=== PATIENT | male | born 1985 | race African-American/Black ===

== ENCOUNTER 2019-05-20 18:05 | Inpatient (IN) | payer OTHER ==
[2019-05-20 19:29] VITALS: BMI 27.3
--- NOTE | 2019-05-20 20:26 | HP ---
"CIWA Score Nausea/Vomitin-No Nausea/No Vomiting Muscle Tremors: 3 Anxiety: 6 Agitation: 4-Moderately Restless Paroxysmal Sweats: No Perspiration Orientation: 1-Uncertain about Date Tacttile Disturbances: 0-None Auditory Disturbances: 0-None Visual Disturbances: 0-None Headache: 0-None Present CIWA-Ar Total Score: 14 - Admission Criteria OASAS Guidelines: Admission for Medically Managed Detox: Requires at least one of the followin. CIWA greater than 12 2. Seizures within the past 24 hours 3. Delirium tremens within the past 24 hours 4. Hallucinations within the past 24 hours 5. Acute intervention needed for co occurring medical disorder 6. Acute intervention needed for co occurring psychiatric disorder 7. Severe withdrawal that cannot be handled at a lower level of care (continued vomiting, continued diarrhea, abnormal vital signs) requiring intravenous medication and/or fluids 8. Patient presents the following: CIWA greater than 12 Admission Criteria Met: Admission criteria met Admission ROS [facility] Chief Complaint: States I have to get detoxed before I can go to rehab. Allergies/Adverse Reactions: Allergies Allergy/AdvReac Type Severity Reaction Status Date / Time No Known Allergies Allergy Verified 05/20/19 19:12 History of Present Illness: 34 yo presents w/ alcohol withdrawal seeking detox. [facility] UTox: Neg KEKE: 0.004 Denies seizures, blackouts, or overdoses. Alcohol use began at age 10/11. Drinks 1-2 bottle liquor daily. Nicotine use began at age 18. Currently smokes 1 cig /day BASED ON ASSESSMENT PATIENT NEEDS MORE THAN 2 NIGHTS OF TREATMENT PMHx: Denies MHHx: States was told was bipolar but denies any MH problems. Denies thoughts of harming self or others. Does not see a MH Provider. SHx: Domiciled - lives w/ brother. Unemployed. Denies legal issues. Search Terms: Johnny Worthy, 1985 Search Date: 05/20/2019 08:25:42 PM The Drug Utilization Report below displays all of the controlled substance prescriptions, if any, that your patient has filled in the last twelve months. The information displayed on this report is compiled from pharmacy submissions to the Department, and accurately reflects the information as submitted by the pharmacies. This report was requested by: Vanessa Caicedo | Reference #: [id number] There are no results for the search terms that you entered. Exam Limitations: No Limitations - Ebola screening Have you traveled outside of the country in the last 21 days: No Have you had contact with anyone from an Ebola affected area: No Have you been sick,other than usual withdrawal symptoms: No Do you have a fever: No - Review of Systems EENT: reports: No Symptoms Reported Respiratory: reports: No Symptoms reported Cardiac: reports: No Symptoms Reported GI: reports: No Symptoms Reported : reports: No Symptoms Reported Musculoskeletal: reports: No Symptoms Reported Integumentary: reports: No Symptoms Reported Neuro: reports: No Symptoms reported Endocrine: reports: Increased Thirst Hematology: reports: No Symptoms Reported Psychiatric: reports: Agitated, Anxious Patient History - PPD History Previous Implant?: Yes Documented Results: Negative w/o proof Implanted On Prior [facility] Admission?: No PPD to be Administered?: Yes - Smoking Cessation Smoking history: Current every day smoker Have you smoked in the past 12 months: Yes Aproximately how many cigarettes per day: 1 Hx Chewing Tobacco Use: No Initiated information on smoking cessation: Yes 'Breaking Loose' booklet given: 05/20/19 - Substance & Tx. History Hx Alcohol Use: Yes Hx Substance Use: No Substance Use Type: Alcohol Hx Substance Use Treatment: Yes (detox, rehab) - Substances abused Cocaine Substance route: Inhalation Frequency: Daily Amount used: 20 bags Age of first use: 15 Date of last use: 05/19/19 Alcohol Substance route: Oral Frequency: Daily Amount used: 24 ounces of beer and liquor. Age of first use: 32 Date of last use: 05/19/19 Admission Physical Exam [facility] - Vital Signs Vital Signs: Vital Signs - 24 hr 05/20/19 05/20/19 19:11 19:31 Temperature 97.1 F L 97.1 F L Pulse Rate 84 84 Respiratory 16 16 Rate Blood Pressure 140/90 140/90 - Physical General Appearance: Yes: Nourished, Mild Distress, Tremorous, Irritable, Anxious HEENTM: Yes: Hearing grossly Normal, Normocephalic, Normal Voice, NISA, Pharynx Normal Respiratory: Yes: Lungs Clear, Normal Breath Sounds, No Respiratory Distress Neck: Yes: No masses,lesions,Nodules, Supple Breast: Yes: Breast Exam Deferred Cardiology: Yes: Regular Rhythm, Regular Rate, S1, S2 Abdominal: Yes: Non Tender, Flat, Soft, Increased Bowel Sounds Genitourinary: Yes: Within Normal Limits Back: Yes: Normal Inspection Musculoskeletal: Yes: full range of Motion, Gait Steady Extremities: Yes: Normal Capillary Refill, Tremors (Mild tremors seen) Neurological: Yes: Alert, Motor Strength 5/5, Depressed Affect (Flat affect, very angry about answering questions, restless) Integumentary: Yes: Normal Color, Dry (decreased skin turgor), Warm Lymphatic: Yes: Within Normal Limits - Diagnostic (1) Alcohol dependence with withdrawal, uncomplicated Current Visit: Yes Status: Acute (2) Nicotine abuse Current Visit: Yes Status: Chronic (3) Mood and affect disturbance Current Visit: Yes Status: Chronic Comment: Unsure of chronicity (4) Symptoms of dehydration Current Visit: Yes Status: Acute Cleared for Admission S - Detox or Rehab [facility] Level of Care: Medically Managed Detox Regimen/Protocol: Librium Claeared for Rehab Admission: No Breathalyzer - Breathalyzer Breathalyzer: 0.004 Urine Drug Screen - Test Device Lot number: [id number] Expiration date: 03/13/21 - Control Is test valid?: Yes - Results Drug screen NEGATIVE: Yes Inpatient Rehab Admission - Rehab Decision to Admit Inpatient rehab admission?: No"
[2019-05-20] MEDS ORDERED: chlordiazePOXIDE HCL 25 MG CAPSULE PO ONE (20:42)
[2019-05-20] MEDS ORDERED: MAGNESIUM CITRATE 300 ML BOTTLE PO PRN (20:42)
[2019-05-20] MEDS ORDERED: MENTHOL/PHENOL 1 EACH UD MM PRN (20:42)
[2019-05-20] MEDS ORDERED: MAG HYDROX/AL HYDROX/SIMETH 30 ML UNIT-DOSE CUP PO PRN (20:42)
[2019-05-20] MEDS ORDERED: chlordiazePOXIDE HCL 25 MG CAPSULE PO PRN (20:42)
[2019-05-20] MEDS ORDERED: BISMUTH SUBSALICYLATE 524 MG/30 ML UD PO PRN (20:42)
[2019-05-20] MEDS ORDERED: METHOCARBAMOL 500 MG TABLET PO PRN (20:42)
[2019-05-20] MEDS ORDERED: ACETAMINOPHEN 325 MG TABLET (FP) PO PRN (20:42)
[2019-05-20] MEDS ORDERED: MAGNESIUM HYDROX 2400MG/30ML ORAL SUSPENSION 30 ML CUP PO PRN (20:42)
[2019-05-20] MEDS: THIAMINE HCL 100 MG TABLET (FP) PO SCH (22:27)
[2019-05-21] MEDS: chlordiazePOXIDE HCL 25 MG CAPSULE PO SCH ×4 (07:24→22:32)
[2019-05-21] MEDS: PRENATAL VITAMINS W/ FOLIC ACID TABLET (FP) PO SCH (10:30)
--- NOTE | 2019-05-21 14:24 | PN ---
[facility] CIWA - CIWA Score Nausea/Vomitin-Mild Nausea/No Vomiting Muscle Tremors: 2 Anxiety: 4-Mod. Anxious/Guarded Agitation: 3 Paroxysmal Sweats: 2 Orientation: 0-Oriented Tacttile Disturbances: 0-None Auditory Disturbances: 0-None Visual Disturbances: 0-None Headache: 0-None Present CIWA-Ar Total Score: 12 S Progress Note (SOAP) Subjective: 34 years old male admitted on 05/20/19 for alcohol withdrawal sx management treating with librium detox regiment feeling ok today ate breakfast in day room with peers encourage the patient to attend groups and meetings for behavior and psychosocial therapies while in detox Objective: 05/21/19 14:25 Vital Signs Temperature 96.4 F L 05/21/19 12:58 Pulse Rate 63 05/21/19 12:58 Respiratory Rate 18 05/21/19 12:58 Blood Pressure 106/65 05/21/19 12:58 O2 Sat by Pulse Oximetry (%) 05/21/19 14:26 lab pending can not locate admission lab order order admission lab now Assessment: 05/21/19 14:27 Vital Signs alcohol withdrawal Plan: librium regimen
--- NOTE | 2019-05-21 14:54 | EKG ---
Test Reason : Blood Pressure : / mmHG Vent. Rate : 062 BPM Atrial Rate : 062 BPM P-R Int : 146 ms QRS Dur : 102 ms QT Int : 404 ms P-R-T Axes : 043 063 052 degrees QTc Int : 410 ms NORMAL SINUS RHYTHM LEFT VENTRICULAR HYPERTROPHY EARLY REPOLARIZATION ABNORMAL ECG Confirmed by MD AMANDA, CHARLA ([id number]) on 05/21/2019 2:54:23 PM Referred By: DIMPLE Confirmed By:CHARLA PATEL MD
--- NOTE | 2019-05-21 16:56 | CONSULT ---
[facility] Psychiatric Consult - Data Date of interview: 05/21/19 Admission source: [facility] Identifying data: Lens Polisher approached patient bedside for psychiatric consultation but patient refused to respond to teletypewriter operator. Patient's name was called multiple times. Patient observed moving from one side of the bed to another while his name was called but refused to answer. Psychiatric consultation refused.
[2019-05-21] MEDS: ACETAMINOPHEN 325 MG TABLET (FP) PO PRN (18:01)
[2019-05-21] MEDS: THIAMINE HCL 100 MG TABLET (FP) PO SCH (22:32)
[2019-05-22] MEDS: chlordiazePOXIDE HCL 25 MG CAPSULE PO SCH ×3 (06:44→17:18)
[2019-05-22 10:07] LABS: HEMATOCRIT 36.1 % (35.4-49); HEMOGLOBIN 11.8 GM/dL (11.7-16.9); MCHC 32.8 g/dl (32.0-35.9); MEAN CELL VOLUME 88.3 fl (80-96); MEAN PLT VOLUME 8.6 fl (7.5-11.1); PLATELET COUNT 177 K/MM3 (134-434); RBC 4.09 M/mm3 (4.00-5.60); WHITE BLOOD COUNT 2.8 K/mm3 (4.0-10.0)
[2019-05-22 10:23] LABS: ALBUMIN 3.2 g/dl (3.4-5.0); BILIRUBIN,TOTAL 0.2 mg/dL (0.2-1); BLOOD UREA NITROGEN 9.3 mg/dL (7-18); CALCIUM 8.4 mg/dL (8.5-10.1); CREATININE 0.8 mg/dL (0.55-1.3); POTASSIUM 3.7 mmol/L (3.5-5.1); TOT PROT 6.3 g/dl (6.4-8.2)
[2019-05-22] MEDS: IBUPROFEN 400 MG TABLET (FP) PO PRN ×2 (11:32→17:16)
[2019-05-22] MEDS: PRENATAL VITAMINS W/ FOLIC ACID TABLET (FP) PO SCH (11:32)
--- NOTE | 2019-05-22 11:49 | PN ---
[facility] CIWA - CIWA Score Nausea/Vomitin-Mild Nausea/No Vomiting Muscle Tremors: 3 Anxiety: 2 Agitation: 1-Slight > Activity Paroxysmal Sweats: 2 Orientation: 0-Oriented Tacttile Disturbances: 0-None Auditory Disturbances: 0-None Visual Disturbances: 1-Very Mild Sensitivity Headache: 1-Very Mild CIWA-Ar Total Score: 11 S Progress Note (SOAP) Subjective: 34 years old male admitted on 05/20/19 for alcohol withdrawal sx management treating with librium detox regiment feeling ok today resting in bed trouble sleep at night tremor Objective: 05/22/19 11:52 Vital Signs Temperature 96.4 F L 05/22/19 08:35 Pulse Rate 77 05/22/19 08:35 Respiratory Rate 18 05/22/19 08:35 Blood Pressure 114/73 05/22/19 08:35 O2 Sat by Pulse Oximetry (%) Laboratory Last Values WBC 2.8 K/mm3 (4.0-10.0) L 05/22/19 07:30 RBC 4.09 M/mm3 (4.00-5.60) 05/22/19 07:30 Hgb 11.8 GM/dL (11.7-16.9) 05/22/19 07:30 Hct 36.1 % (35.4-49) 05/22/19 07:30 MCV 88.3 fl (80-96) 05/22/19 07:30 MCH 29.0 pg (25.7-33.7) 05/22/19 07:30 MCHC 32.8 g/dl (32.0-35.9) 05/22/19 07:30 RDW 14.0 % (11.9-15.9) 05/22/19 07:30 Plt Count 177 K/MM3 (134-434) 05/22/19 07:30 MPV 8.6 fl (7.5-11.1) 05/22/19 07:30 Sodium 140 mmol/L (136-145) 05/22/19 07:30 Potassium 3.7 mmol/L (3.5-5.1) 05/22/19 07:30 Chloride 107 mmol/L (98-107) 05/22/19 07:30 Carbon Dioxide 29 mmol/L (21-32) 05/22/19 07:30 Anion Gap 4 MMOL/L (8-16) L 05/22/19 07:30 BUN 9.3 mg/dL (7-18) 05/22/19 07:30 Creatinine 0.8 mg/dL (0.55-1.3) 05/22/19 07:30 Est GFR (CKD-EPI)AfAm 134.14 05/22/19 07:30 Est GFR (CKD-EPI)NonAf 115.74 05/22/19 07:30 Random Glucose 94 mg/dL (74-106) 05/22/19 07:30 Calcium 8.4 mg/dL (8.5-10.1) L 05/22/19 07:30 Total Bilirubin 0.2 mg/dL (0.2-1) 05/22/19 07:30 AST 52 U/L (15-37) H 05/22/19 07:30 ALT 46 U/L (13-61) 05/22/19 07:30 Alkaline Phosphatase 91 U/L (45-117) 05/22/19 07:30 Total Protein 6.3 g/dl (6.4-8.2) L 05/22/19 07:30 Albumin 3.2 g/dl (3.4-5.0) L 05/22/19 07:30 lab noted 05/22/19 11:53 low wbc repeat cbc with diff Assessment: 05/22/19 11:54 alcohol withdrawal Plan: librium regiment
[2019-05-22] MEDS: ACETAMINOPHEN 325 MG TABLET (FP) PO PRN (18:37)
[2019-05-22] MEDS ORDERED: chlordiazePOXIDE HCL 10 MG CAPSULE PO PRN (19:06)
[2019-05-22] MEDS ORDERED: BENZOCAINE 20 % GEL TUBE MM PRN (19:23)
[2019-05-22] MEDS: THIAMINE HCL 100 MG TABLET (FP) PO SCH (22:37)
[2019-05-22] MEDS: chlordiazePOXIDE 5 MG CAPSULE PO SCH (22:38)
[2019-05-22] MEDS: MELATONIN 5 MG TABLETS PO PRN (22:53)
[2019-05-22] MEDS ORDERED: chlordiazePOXIDE 5 MG CAPSULE PO SCH (23:00)
[2019-05-23] MEDS ORDERED: chlordiazePOXIDE HCL 10 MG CAPSULE PO PRN
[2019-05-23] MEDS ORDERED: chlordiazePOXIDE HCL 10 MG CAPSULE PO SCH ×2 (05:00)
[2019-05-23] MEDS: chlordiazePOXIDE 5 MG CAPSULE PO SCH (06:32)
[2019-05-23] MEDS: IBUPROFEN 400 MG TABLET (FP) PO PRN ×2 (08:36→17:31)
--- NOTE | 2019-05-23 09:19 | PN ---
S CIWA - CIWA Score Nausea/Vomitin-No Nausea/No Vomiting Muscle Tremors: 2 Anxiety: 2 Agitation: 0-Normal Activity Paroxysmal Sweats: 2 Orientation: 0-Oriented Tacttile Disturbances: 0-None Auditory Disturbances: 0-None Visual Disturbances: 0-None Headache: 1-Very Mild CIWA-Ar Total Score: 7 BHS Progress Note (SOAP) Subjective: 34 years old male admitted on 05/20/19 for alcohol withdrawal sx management treating with librium detox regiment reports right lower tooth decay with 4/10 pain chlorhexidin rinse bid after meal Objective: 05/23/19 09:19 Vital Signs Temperature 96.0 F L 05/23/19 08:40 Pulse Rate 72 05/23/19 08:40 Respiratory Rate 18 05/23/19 08:40 Blood Pressure 122/88 05/23/19 08:40 O2 Sat by Pulse Oximetry (%) Laboratory Last Values WBC 2.8 K/mm3 (4.0-10.0) L 05/22/19 07:30 RBC 4.09 M/mm3 (4.00-5.60) 05/22/19 07:30 Hgb 11.8 GM/dL (11.7-16.9) 05/22/19 07:30 Hct 36.1 % (35.4-49) 05/22/19 07:30 MCV 88.3 fl (80-96) 05/22/19 07:30 MCH 29.0 pg (25.7-33.7) 05/22/19 07:30 MCHC 32.8 g/dl (32.0-35.9) 05/22/19 07:30 RDW 14.0 % (11.9-15.9) 05/22/19 07:30 Plt Count 177 K/MM3 (134-434) 05/22/19 07:30 MPV 8.6 fl (7.5-11.1) 05/22/19 07:30 Sodium 140 mmol/L (136-145) 05/22/19 07:30 Potassium 3.7 mmol/L (3.5-5.1) 05/22/19 07:30 Chloride 107 mmol/L (98-107) 05/22/19 07:30 Carbon Dioxide 29 mmol/L (21-32) 02/03/20 07:30 Anion Gap 4 MMOL/L (8-16) L 05/22/19 07:30 BUN 9.3 mg/dL (7-18) 05/22/19 07:30 Creatinine 0.8 mg/dL (0.55-1.3) 05/22/19 07:30 Est GFR (CKD-EPI)AfAm 134.14 05/22/19 07:30 Est GFR (CKD-EPI)NonAf 115.74 05/22/19 07:30 Random Glucose 94 mg/dL (74-106) 05/22/19 07:30 Calcium 8.4 mg/dL (8.5-10.1) L 05/22/19 07:30 Total Bilirubin 0.2 mg/dL (0.2-1) 05/22/19 07:30 AST 52 U/L (15-37) H 05/22/19 07:30 ALT 46 U/L (13-61) 05/22/19 07:30 Alkaline Phosphatase 91 U/L (45-117) 05/22/19 07:30 Total Protein 6.3 g/dl (6.4-8.2) L 05/22/19 07:30 Albumin 3.2 g/dl (3.4-5.0) L 05/22/19 07:30 RPR Titer Nonreactive (NONREACTIVE) 05/22/19 07:30 05/23/19 09:19 lab noted first [facility] admission repeat cbc Assessment: 05/23/19 09:21 alcohol withdrawal Plan: librium regiment
[2019-05-23] MEDS: PRENATAL VITAMINS W/ FOLIC ACID TABLET (FP) PO SCH (10:07)
[2019-05-23] MEDS: CHLORHEXIDINE GLUCONATE 118 ML MOUTHWASH MM SCH ×2 (10:08→22:11)
[2019-05-23] MEDS ORDERED: chlordiazePOXIDE HCL 25 MG CAPSULE PO SCH (11:00)
[2019-05-23] MEDS: chlordiazePOXIDE HCL 10 MG CAPSULE PO SCH ×3 (11:10→22:12)
[2019-05-23] MEDS: THIAMINE HCL 100 MG TABLET (FP) PO SCH (22:12)
[2019-05-23] MEDS: ACETAMINOPHEN 325 MG TABLET (FP) PO PRN (22:13)
[2019-05-23] MEDS: MELATONIN 5 MG TABLETS PO PRN (22:13)
[2019-05-24] MEDS: chlordiazePOXIDE HCL 10 MG CAPSULE PO SCH ×2 (06:23→17:33)
--- NOTE | 2019-05-24 09:43 | PN ---
S CIWA - CIWA Score Nausea/Vomitin-No Nausea/No Vomiting Muscle Tremors: 1-None Visible, but [place] Anxiety: 1-Mildly Anxious Agitation: 0-Normal Activity Paroxysmal Sweats: 1-Minimal Palms Moist Orientation: 0-Oriented Tacttile Disturbances: 0-None Auditory Disturbances: 0-None Visual Disturbances: 1-Very Mild Sensitivity Headache: 0-None Present CIWA-Ar Total Score: 4 BHS Progress Note (SOAP) Subjective: 34 years old male admitted on 05/20/19 for alcohol withdrawal sx management treating with librium detox regiment feeling better today slept through the night less tremor discussed aftercare with staff patient prefers to go to [facility] Objective: 05/24/19 09:45 Vital Signs Temperature 97.0 F L 05/24/19 08:55 Pulse Rate 75 05/24/19 08:55 Respiratory Rate 16 05/24/19 08:55 Blood Pressure 126/79 05/24/19 08:55 O2 Sat by Pulse Oximetry (%) Laboratory Last Values WBC 2.8 K/mm3 (4.0-10.0) L 05/22/19 07:30 RBC 4.09 M/mm3 (4.00-5.60) 05/22/19 07:30 Hgb 11.8 GM/dL (11.7-16.9) 05/22/19 07:30 Hct 36.1 % (35.4-49) 05/22/19 07:30 MCV 88.3 fl (80-96) 05/22/19 07:30 MCH 29.0 pg (25.7-33.7) 05/22/19 07:30 MCHC 32.8 g/dl (32.0-35.9) 05/22/19 07:30 RDW 14.0 % (11.9-15.9) 05/22/19 07:30 Plt Count 177 K/MM3 (134-434) 05/22/19 07:30 MPV 8.6 fl (7.5-11.1) 05/22/19 07:30 Sodium 140 mmol/L (136-145) 05/22/19 07:30 Potassium 3.7 mmol/L (3.5-5.1) 05/22/19 07:30 Chloride 107 mmol/L (98-107) 05/22/19 07:30 Carbon Dioxide 29 mmol/L (21-32) 05/22/19 07:30 Anion Gap 4 MMOL/L (8-16) L 05/22/19 07:30 BUN 9.3 mg/dL (7-18) 05/22/19 07:30 Creatinine 0.8 mg/dL (0.55-1.3) 05/22/19 07:30 Est GFR (CKD-EPI)AfAm 134.14 05/22/19 07:30 Est GFR (CKD-EPI)NonAf 115.74 05/22/19 07:30 Random Glucose 94 mg/dL (74-106) 05/22/19 07:30 Calcium 8.4 mg/dL (8.5-10.1) L 05/22/19 07:30 Total Bilirubin 0.2 mg/dL (0.2-1) 05/22/19 07:30 AST 52 U/L (15-37) H 05/22/19 07:30 ALT 46 U/L (13-61) 05/22/19 07:30 Alkaline Phosphatase 91 U/L (45-117) 05/22/19 07:30 Total Protein 6.3 g/dl (6.4-8.2) L 05/22/19 07:30 Albumin 3.2 g/dl (3.4-5.0) L 05/22/19 07:30 RPR Titer Nonreactive (NONREACTIVE) 05/22/19 07:30 05/24/19 09:45 repeat wbc pending patient agrees to go to aftercare for follow up 05/24/19 09:46 Assessment: 05/24/19 09:46 alcohol withdrawal Plan: librium regiment
[2019-05-24] MEDS: PRENATAL VITAMINS W/ FOLIC ACID TABLET (FP) PO SCH (10:03)
[2019-05-24] MEDS: CHLORHEXIDINE GLUCONATE 118 ML MOUTHWASH MM SCH ×2 (10:03→22:07)
[2019-05-24] MEDS: NICOTINE POLACRILEX 4 MG GUM BUC PRN ×2 (11:15→14:36)
[2019-05-24 11:33] LABS: HEMATOCRIT 38.6 % (35.4-49); HEMOGLOBIN 12.9 GM/dL (11.7-16.9); MCH 29.5 pg (25.7-33.7); MCHC 33.4 g/dl (32.0-35.9); MEAN CELL VOLUME 88.4 fl (80-96); MEAN PLT VOLUME 8.5 fl (7.5-11.1); PLATELET COUNT 207 K/MM3 (134-434); RBC 4.37 M/mm3 (4.00-5.60); RDW 14.1 % (11.9-15.9); WHITE BLOOD COUNT 3.6 K/mm3 (4.0-10.0)
[2019-05-24] MEDS: IBUPROFEN 400 MG TABLET (FP) PO PRN (17:35)
[2019-05-24] MEDS: ACETAMINOPHEN 325 MG TABLET (FP) PO PRN (19:17)
[2019-05-24] MEDS: MELATONIN 5 MG TABLETS PO PRN (22:07)
[2019-05-24] MEDS: THIAMINE HCL 100 MG TABLET (FP) PO SCH (22:07)
[2019-05-25] MEDS ORDERED: chlordiazePOXIDE HCL 10 MG CAPSULE PO ONE (05:00)
[2019-05-25] MEDS: CHLORHEXIDINE GLUCONATE 118 ML MOUTHWASH MM SCH (09:40)
[2019-05-25] MEDS: PRENATAL VITAMINS W/ FOLIC ACID TABLET (FP) PO SCH (09:40)
[2019-05-25] MEDS: IBUPROFEN 400 MG TABLET (FP) PO PRN (09:41)
--- NOTE | 2019-05-25 10:40 | DS ---
[facility] Detox Discharge Summary Admission Date: 05/20/19 Discharge Date: 05/25/19 - History Present History: Alcohol Dependence Additional Comments: 34 years old male admitted on 05/20/19 for alcohol withdrawal sx management treated wtih librium detox regiment patient has completed the librium regiment and tolerated well refused to be seen by a psychiatrist alert oriented x 3 cardiac s1s2 regular rate rhythm ekg indicated left ventrical hypertrophy respiratory clear lungs bilaterally on auscultation extremities full range of motion Pertinent Past History: time for discharge: 26 minutes - Physical Exam Results Vital Signs: Vital Signs Temperature 96.6 F L 05/25/19 08:55 Pulse Rate 86 05/25/19 08:55 Respiratory Rate 18 05/25/19 08:55 Blood Pressure 123/73 05/25/19 08:55 O2 Sat by Pulse Oximetry (%) Pertinent Admission Physical Exam Findings: alcohol withdrawal Laboratory Last Values WBC 3.6 K/mm3 (4.0-10.0) L 05/24/19 09:53 RBC 4.37 M/mm3 (4.00-5.60) 05/24/19 09:53 Hgb 12.9 GM/dL (11.7-16.9) 05/24/19 09:53 Hct 38.6 % (35.4-49) 05/24/19 09:53 MCV 88.4 fl (80-96) 05/24/19 09:53 MCH 29.5 pg (25.7-33.7) 05/24/19 09:53 MCHC 33.4 g/dl (32.0-35.9) 05/24/19 09:53 RDW 14.1 % (11.9-15.9) 05/24/19 09:53 Plt Count 207 K/MM3 (134-434) 05/24/19 09:53 MPV 8.5 fl (7.5-11.1) 05/24/19 09:53 Sodium 140 mmol/L (136-145) 05/22/19 07:30 Potassium 3.7 mmol/L (3.5-5.1) 05/22/19 07:30 Chloride 107 mmol/L (98-107) 05/22/19 07:30 Carbon Dioxide 29 mmol/L (21-32) 05/22/19 07:30 Anion Gap 4 MMOL/L (8-16) L 05/22/19 07:30 BUN 9.3 mg/dL (7-18) 05/22/19 07:30 Creatinine 0.8 mg/dL (0.55-1.3) 05/22/19 07:30 Est GFR (CKD-EPI)AfAm 134.14 05/22/19 07:30 Est GFR (CKD-EPI)NonAf 115.74 05/22/19 07:30 Random Glucose 94 mg/dL (74-106) 05/22/19 07:30 Calcium 8.4 mg/dL (8.5-10.1) L 05/22/19 07:30 Total Bilirubin 0.2 mg/dL (0.2-1) 05/22/19 07:30 AST 52 U/L (15-37) H 05/22/19 07:30 ALT 46 U/L (13-61) 05/22/19 07:30 Alkaline Phosphatase 91 U/L (45-117) 05/22/19 07:30 Total Protein 6.3 g/dl (6.4-8.2) L 05/22/19 07:30 Albumin 3.2 g/dl (3.4-5.0) L 05/22/19 07:30 RPR Titer Nonreactive (NONREACTIVE) 05/22/19 07:30 lab noted - Treatment Hospital Course: Detox Protocol Followed, Detoxed Safely, Responded well, Discharged Condition Good, Rehab Referral Accepted Patient has Accepted [facility] Referral [facility] - Medication Discharge Medications: Ambulatory Orders Olanzapine [ZyPREXA -] 10 mg PO DAILY 05/20/19 Quetiapine Fumarate [Seroquel -] 100 mg PO HS 05/20/19 - Diagnosis (1) Substance induced mood disorder Status: Suspected (2) Alcohol dependence with withdrawal, uncomplicated Status: Acute (3) Nicotine abuse Status: Acute - AMA Did Patient Leave Against Medical Advice: No CIWA Score - CIWA Score Nausea/Vomitin-No Nausea/No Vomiting Muscle Tremors: 1-None Visible, but [place] Anxiety: 1-Mildly Anxious Agitation: 0-Normal Activity Paroxysmal Sweats: No Perspiration Orientation: 0-Oriented Tacttile Disturbances: 0-None Auditory Disturbances: 0-None Visual Disturbances: 0-None Headache: 0-None Present CIWA-Ar Total Score: 2
[2019-05-25 10:41] VITALS: BP 123/73; PULSE 86; TEMP 96.6
== END 2019-05-25 11:41 | disposition other institution (70) | DRG 775 ==
LOC: YASAS 18:05 → Y3N 20:54
PROVIDERS: ADMIT Allergy & Immunology; ATTEND Allergy & Immunology
PROC: HZ2ZZZZ Detoxification Services for Substance Abuse Treatment (ICD-10-PCS; principal; 2019-05-20)
DX: F10.230 Alcohol dependence with withdrawal, uncomplicated (principal); F17.210 Nicotine dependence, cigarettes, uncomplicated; F19.24 Other psychoactive substance dependence with psychoactive substance-induced mood disorder; F39 Unspecified mood [affective] disorder; E86.0 Dehydration; D72.819 Decreased white blood cell count, unspecified
CPT/HCPCS: 36415; 80053; 85027; 86593; 93005; 93010

== ENCOUNTER 2019-05-25 11:44 | Inpatient (IN) | payer OTHER ==
--- NOTE | 2019-05-25 10:41 | HP ---
[facility] Rehab Assess/Revision - Admission History Admitted to Rehab from: [facility] Date of Admission to Rehab: 05/25/19 - Findings Detox History & Physical reviewed: Yes Concur with findings: Yes Comments/Additional Findings: transferred from detox to rehab admission as per protocol Inpatient Rehab Admission - Rehab Decision to Admit Inpatient rehab admission?: Yes - Initial Determination Are CD services needed?: Yes Free of communicable disease: Yes Not in need of hospitalization: Yes - Rehab Admission Criteria Previous failed treatment: Yes Poor recovery environment: Yes Comorbidities: Yes Lacks judgement: Yes Patient is meeting Inpatient Rehab admission criteria:: Yes
[2019-05-25] MEDS: BENZOCAINE 20 % GEL TUBE MM SCH ×2 (11:24→18:55)
[~2019-05-25 11:44] MED LIST: LOPERAMIDE HCL 2 MG CAPSULE PO PRN; MAG HYDROX/AL HYDROX/SIMETH 30 ML UNIT-DOSE CUP PO PRN; MAGNESIUM CITRATE 300 ML BOTTLE PO PRN; MAGNESIUM HYDROX 2400MG/30ML ORAL SUSPENSION 30 ML CUP PO PRN; MENTHOL/PHENOL 1 EACH UD MM PRN; P-EPHED 60MG/TRIPROLIDI 2.5MG TABLET PO PRN; guaiFENesin 200 MG/10 ML 10 ML UNIT-DOSE CUPS PO PRN
[2019-05-25] MEDS ORDERED: NICOTINE 21 MG/24 HOURS TOPICAL PATCH TD PRN (11:50)
--- NOTE | 2019-05-25 12:18 | HP ---
[facility] Rehab Assess/Revision - Findings Detox History & Physical reviewed: Yes Concur with findings: Yes Comments/Additional Findings: Patient had a psychiatric consult request while in Detox, he refused it (please see psychiatric provider's note). He has psychiatric medications in his home medication list. Another psychiatric consult has been requested. Patient encouraged to meet with psychiatric provider. Inpatient Rehab Admission - Rehab Decision to Admit Inpatient rehab admission?: Yes - Initial Determination Are CD services needed?: Yes Free of communicable disease: Yes Not in need of hospitalization: Yes - Rehab Admission Criteria Previous failed treatment: Yes Poor recovery environment: Yes Comorbidities: Yes Lacks judgement: Yes Patient is meeting Inpatient Rehab admission criteria:: Yes (Patient needs to meet with psych provider for medication review.)
[2019-05-25] MEDS: IBUPROFEN 400 MG TABLET (FP) PO PRN (17:11)
[2019-05-25] MEDS: NICOTINE POLACRILEX 4 MG GUM BUC PRN (19:43)
[2019-05-25] MEDS: THIAMINE HCL 100 MG TABLET (FP) PO SCH (21:44)
[2019-05-25] MEDS: ACETAMINOPHEN 325 MG TABLET (FP) PO PRN (21:44)
[2019-05-25] MEDS: MELATONIN 5 MG TABLETS PO PRN (21:44)
[2019-05-26] MEDS: BENZOCAINE 20 % GEL TUBE MM SCH ×3 (03:50→21:14)
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
[2019-05-26] MEDS ORDERED: hydrOXYzine PAMOATE 50 MG CAPSULE (FP) PO PRN (10:54)
[2019-05-26] MEDS: NICOTINE POLACRILEX 4 MG GUM BUC PRN ×3 (12:53→21:11)
[2019-05-26] MEDS: IBUPROFEN 400 MG TABLET (FP) PO PRN ×2 (12:55→18:05)
[2019-05-26] MEDS: hydrOXYzine PAMOATE 50 MG CAPSULE (FP) PO PRN ×2 (13:08→18:07)
[2019-05-26] MEDS: PRENATAL VITAMINS W/ FOLIC ACID TABLET (FP) PO SCH (13:08)
[2019-05-26] MEDS: MELATONIN 5 MG TABLETS PO PRN (21:10)
[2019-05-26] MEDS: THIAMINE HCL 100 MG TABLET (FP) PO SCH (21:10)
[2019-05-26] MEDS: QUEtiapine FUMARATE 100 MG TABLET (FP) PO SCH (21:11)
[2019-05-26] MEDS: ACETAMINOPHEN 325 MG TABLET (FP) PO PRN (21:11)
[2019-05-27] MEDS: BENZOCAINE 20 % GEL TUBE MM SCH ×3 (05:55→19:50)
[2019-05-27] MEDS: PRENATAL VITAMINS W/ FOLIC ACID TABLET (FP) PO SCH (10:05)
[2019-05-27] MEDS: hydrOXYzine PAMOATE 50 MG CAPSULE (FP) PO PRN (11:41)
[2019-05-27] MEDS: IBUPROFEN 400 MG TABLET (FP) PO PRN ×2 (11:41→21:32)
[2019-05-27] MEDS: NICOTINE POLACRILEX 4 MG GUM BUC PRN ×3 (13:07→19:48)
[2019-05-27] MEDS: ACETAMINOPHEN 325 MG TABLET (FP) PO PRN (13:08)
[2019-05-27] MEDS: THIAMINE HCL 100 MG TABLET (FP) PO SCH (21:32)
[2019-05-27] MEDS: QUEtiapine FUMARATE 100 MG TABLET (FP) PO SCH (21:32)
[2019-05-27] MEDS: MELATONIN 5 MG TABLETS PO PRN (21:32)
[2019-05-28] MEDS: IBUPROFEN 400 MG TABLET (FP) PO PRN ×2 (09:50→18:17)
[2019-05-28] MEDS: PRENATAL VITAMINS W/ FOLIC ACID TABLET (FP) PO SCH (09:50)
[2019-05-28] MEDS: NICOTINE POLACRILEX 4 MG GUM BUC PRN ×3 (09:51→21:19)
[2019-05-28] MEDS: BENZOCAINE 20 % GEL TUBE MM SCH (12:16)
[2019-05-28] MEDS: hydrOXYzine PAMOATE 50 MG CAPSULE (FP) PO PRN (18:18)
[2019-05-28] MEDS: ACETAMINOPHEN 325 MG TABLET (FP) PO PRN (21:18)
[2019-05-28] MEDS: QUEtiapine FUMARATE 100 MG TABLET (FP) PO SCH (21:18)
[2019-05-28] MEDS: MELATONIN 5 MG TABLETS PO PRN (21:18)
[2019-05-28] MEDS: THIAMINE HCL 100 MG TABLET (FP) PO SCH (21:18)
[2019-05-29] MEDS: BENZOCAINE 20 % GEL TUBE MM SCH ×2 (03:50→10:09)
[2019-05-29] MEDS: IBUPROFEN 400 MG TABLET (FP) PO PRN ×3 (08:57→21:41)
[2019-05-29] MEDS ORDERED: BENZOCAINE 20 % GEL TUBE MM PRN (09:15)
[2019-05-29] MEDS: PRENATAL VITAMINS W/ FOLIC ACID TABLET (FP) PO SCH (10:08)
[2019-05-29] MEDS: ACETAMINOPHEN 325 MG TABLET (FP) PO PRN ×2 (11:44→19:30)
[2019-05-29] MEDS: NICOTINE POLACRILEX 4 MG GUM BUC PRN ×3 (14:41→21:41)
[2019-05-29] MEDS: hydrOXYzine PAMOATE 50 MG CAPSULE (FP) PO PRN (19:30)
[2019-05-29] MEDS: MELATONIN 5 MG TABLETS PO PRN (21:40)
[2019-05-29] MEDS: QUEtiapine FUMARATE 100 MG TABLET (FP) PO SCH (21:40)
[2019-05-29] MEDS: THIAMINE HCL 100 MG TABLET (FP) PO SCH (21:40)
[2019-05-30] MEDS: PRENATAL VITAMINS W/ FOLIC ACID TABLET (FP) PO SCH (09:33)
[2019-05-30] MEDS: IBUPROFEN 400 MG TABLET (FP) PO PRN (09:33)
[2019-05-30] MEDS: NICOTINE POLACRILEX 4 MG GUM BUC PRN ×5 (09:35→22:38)
[2019-05-30] MEDS ORDERED: IBUPROFEN 600 MG TABLET (FP) PO PRN (10:52)
--- NOTE | 2019-05-30 10:57 | PN ---
S Progress Note (SOAP) Subjective: patient c/o headache for several days. Taking tylenol and motrin without relieve. PMHx of Cocaine use prior to admission. denies allergies. Patient is not drinking water Objective: General: no apparent distress HEENTM: PERRLA nares-clear, [id number] Neuro: CN 2-12 intact 05/30/19 10:55 05/30/19 10:56 Assessment: headaches 05/30/19 10:55 Plan: Increase fluids increased motrin to 600mg every 4 hours.
[2019-05-30] MEDS: IBUPROFEN 600 MG TABLET (FP) PO PRN ×2 (14:07→21:07)
[2019-05-30] MEDS: hydrOXYzine PAMOATE 50 MG CAPSULE (FP) PO PRN (19:36)
[2019-05-30] MEDS: MELATONIN 5 MG TABLETS PO PRN (21:06)
[2019-05-30] MEDS: QUEtiapine FUMARATE 100 MG TABLET (FP) PO SCH (21:06)
[2019-05-30] MEDS: THIAMINE HCL 100 MG TABLET (FP) PO SCH (21:06)
[2019-05-31] MEDS: PRENATAL VITAMINS W/ FOLIC ACID TABLET (FP) PO SCH (10:03)
[2019-05-31] MEDS: IBUPROFEN 600 MG TABLET (FP) PO PRN ×3 (10:04→21:33)
[2019-05-31] MEDS: NICOTINE POLACRILEX 4 MG GUM BUC PRN ×4 (10:06→21:33)
[2019-05-31] MEDS: hydrOXYzine PAMOATE 50 MG CAPSULE (FP) PO PRN (10:52)
[2019-05-31] MEDS: ACETAMINOPHEN 325 MG TABLET (FP) PO PRN (13:53)
[2019-05-31] MEDS: QUEtiapine FUMARATE 100 MG TABLET (FP) PO SCH (21:32)
[2019-05-31] MEDS: MELATONIN 5 MG TABLETS PO PRN (21:32)
[2019-05-31] MEDS: THIAMINE HCL 100 MG TABLET (FP) PO SCH (21:32)
[2019-06-01] MEDS: IBUPROFEN 600 MG TABLET (FP) PO PRN ×2 (09:36→15:13)
[2019-06-01] MEDS: PRENATAL VITAMINS W/ FOLIC ACID TABLET (FP) PO SCH (09:36)
[2019-06-01] MEDS: NICOTINE POLACRILEX 4 MG GUM BUC PRN ×6 (09:37→22:54)
[2019-06-01] MEDS: ACETAMINOPHEN 325 MG TABLET (FP) PO PRN ×2 (12:12→19:27)
--- NOTE | 2019-06-01 14:35 | PN ---
Psychiatric Progress Note Vital Signs: Vital Signs Period Temp Pulse Resp BP Sys/Ortiz Pulse Ox Last 24 Hr 97.8 F 83 18-18 127/73 Date of Session: 06/01/19 Chief Complaint:: "consult for evaluation of placement" HPI: Patient admitted to [facility] for alcohol and cocaine dependence. ROS: Patient is calm, cooperative, alert +oriented X3. Current Medications: Active Medications Generic Name Dose Route Start Last Admin Trade Name Freq PRN Reason Stop Dose Admin Acetaminophen 650 mg 05/25/19 10:41 06/01/19 12:12 Tylenol - PO 650 mg Q4H PRN Administration FEVER Al Hydroxide/Mg Hydroxide 30 ml 05/25/19 10:41 05/29/19 11:00 Mylanta Oral Suspension - PO 30 ml Q6H PRN Administration DYSPEPSIA Benzocaine 1 applic 05/29/19 09:15 Anbesol - MM Q8H PRN FOR TOOTHACHE Eucalyptus/Menthol/Phenol/Sorbitol 1 each 05/25/19 10:41 Cepastat Lozenge - MM Q4H PRN SORE THROAT Guaifenesin 10 ml 05/25/19 10:41 Robitussin - PO Q6H PRN COUGH Hydroxyzine Pamoate 50 mg 05/26/19 10:55 05/31/19 10:52 Vistaril - PO 50 mg Q4H PRN Administration irritability Ibuprofen 600 mg 05/30/19 11:21 06/01/19 09:36 Motrin - PO 600 mg Q4H PRN Administration PAIN LEVEL 4 - 6 Loperamide HCl 4 mg 05/25/19 10:41 Imodium - PO Q6H PRN DIARRHEA Magnesium Citrate 300 ml 05/25/19 10:41 Citroma - PO Q48H PRN CONSTIPATION Magnesium Hydroxide 30 ml 05/25/19 10:41 Milk Of Magnesia - PO DAILY PRN CONSTIPATION Melatonin 5 mg 05/25/19 22:00 05/31/19 21:32 Melatonin PO 5 mg HS PRN Administration INSOMNIA Nicotine 21 mg 05/25/19 11:50 Nicoderm Patch - TD DAILY PRN NICOTINE REPLACEMENT RX Nicotine Polacrilex 4 mg 05/25/19 10:41 06/01/19 14:15 Nicorette Gum - BUC 4 mg Q2H PRN Administration NICOTINE REPLACEMENT RX Multivit/Folic Acid/Iron 1 tab 05/26/19 10:00 06/01/19 09:36 Vitamins (Sjr) - PO 1 tab DAILY TAMIKA Administration Pseudoephedrine/Triprolidine 1 combo 05/25/19 10:41 Actifed - PO TID PRN NASAL CONGESTION Quetiapine Fumarate 100 mg 05/26/19 22:00 05/31/19 21:32 Seroquel - PO 100 mg HS TAMIKA Administration Thiamine HCl 100 mg 05/25/19 22:00 05/31/19 21:32 Vitamin B1 - PO 100 mg HS TAMIKA Administration Medication(s) Change(s): No. Current Side Effect: No Lab tests ordered: No Lab tests reviewed: Yes Provider note:: Patient presents as calm, cooperative, alert +oriented X3. This is day seven of rehab. Patient has needed redirection from staff during the first few days on several occasions due to being rude and speaking inappropriately about females. Patient aware of his behavior and stated to process description writer, " I joke around. I was just talking with the guys. It wasn't meant to be disrespectful." As per staff patient's behavior has improved within the last two days. Patient is attending most groups and has been appropriately participating in groups. Patient has been able to follow directions from staff and is taking his medications as scheduled. Patient denies auditory/visual hallucinations, suicidal/homicidal ideation. No psychosis noted. Total face to face time:: 25 Mental Status Exam - Mental Status Exam Alert and Oriented to: Time, Place, Person Cognitive Function: Good Patient Appearance: Well Groomed Mood: Euthymic Affect: Appropriate Patient Behavior: Appropriate, Cooperative Speech Pattern: Clear, Appropriate Voice Loudness: Normal Thought Process: Intact, Goal Oriented Thought Disorder: Not Present Hallucinations: Denies Suicidal Ideation: Denies Homicidal Ideation: Denies Insight/Judgement: Poor Sleep: Fair Appetite: Fair Muscle strength/Tone: Normal Gait/Station: Normal Psychiatric Treatment Plan - Problem List (1) Alcohol use disorder Current Visit: Yes (2) Mood disorder Current Visit: Yes (3) Personality disorder Current Visit: Yes (4) History of antisocial personality disorder Current Visit: Yes Comment: Suspected history of antisocial personality disorder.
[2019-06-01] MEDS: THIAMINE HCL 100 MG TABLET (FP) PO SCH (21:04)
[2019-06-01] MEDS: QUEtiapine FUMARATE 100 MG TABLET (FP) PO SCH (21:04)
[2019-06-01] MEDS: MELATONIN 5 MG TABLETS PO PRN (21:04)
[2019-06-02] MEDS: PRENATAL VITAMINS W/ FOLIC ACID TABLET (FP) PO SCH (10:04)
[2019-06-02] MEDS: IBUPROFEN 600 MG TABLET (FP) PO PRN ×2 (10:05→21:36)
[2019-06-02] MEDS: NICOTINE POLACRILEX 4 MG GUM BUC PRN ×4 (10:06→19:11)
[2019-06-02] MEDS: ACETAMINOPHEN 325 MG TABLET (FP) PO PRN (19:10)
[2019-06-02] MEDS: MELATONIN 5 MG TABLETS PO PRN (21:35)
[2019-06-02] MEDS: THIAMINE HCL 100 MG TABLET (FP) PO SCH (21:35)
[2019-06-02] MEDS: QUEtiapine FUMARATE 100 MG TABLET (FP) PO SCH (21:35)
[2019-06-03] MEDS: PRENATAL VITAMINS W/ FOLIC ACID TABLET (FP) PO SCH (10:47)
[2019-06-03] MEDS: IBUPROFEN 600 MG TABLET (FP) PO PRN ×2 (11:19→17:58)
[2019-06-03] MEDS: NICOTINE POLACRILEX 4 MG GUM BUC PRN ×3 (11:20→17:59)
[2019-06-03] MEDS: ACETAMINOPHEN 325 MG TABLET (FP) PO PRN (14:09)
[2019-06-03] MEDS: QUEtiapine FUMARATE 100 MG TABLET (FP) PO SCH (21:13)
[2019-06-03] MEDS: THIAMINE HCL 100 MG TABLET (FP) PO SCH (21:13)
[2019-06-03] MEDS: MELATONIN 5 MG TABLETS PO PRN (22:03)
[2019-06-04] MEDS: PRENATAL VITAMINS W/ FOLIC ACID TABLET (FP) PO SCH (09:54)
[2019-06-04] MEDS: IBUPROFEN 600 MG TABLET (FP) PO PRN ×3 (09:54→19:06)
[2019-06-04] MEDS: NICOTINE POLACRILEX 4 MG GUM BUC PRN ×3 (09:55→15:16)
[2019-06-04] MEDS: ACETAMINOPHEN 325 MG TABLET (FP) PO PRN (16:57)
[2019-06-04] MEDS: QUEtiapine FUMARATE 100 MG TABLET (FP) PO SCH (21:15)
[2019-06-04] MEDS: THIAMINE HCL 100 MG TABLET (FP) PO SCH (21:15)
[2019-06-04] MEDS: MELATONIN 5 MG TABLETS PO PRN (21:16)
[2019-06-05] MEDS ORDERED: PT OWN MED DRAWER 7, Y5N ONE (08:37)
[2019-06-05] MEDS: PRENATAL VITAMINS W/ FOLIC ACID TABLET (FP) PO SCH (10:05)
[2019-06-05 10:17] VITALS: BP 127/74; PULSE 74; TEMP 97.1
[2019-06-05] MEDS: IBUPROFEN 600 MG TABLET (FP) PO PRN ×2 (11:05→20:51)
[2019-06-05] MEDS: NICOTINE POLACRILEX 4 MG GUM BUC PRN (14:21)
[2019-06-05] MEDS: ACETAMINOPHEN 325 MG TABLET (FP) PO PRN ×2 (14:21→17:31)
[2019-06-05] MEDS: QUEtiapine FUMARATE 100 MG TABLET (FP) PO SCH (21:01)
[2019-06-05] MEDS: THIAMINE HCL 100 MG TABLET (FP) PO SCH (21:01)
[2019-06-05] MEDS: MELATONIN 5 MG TABLETS PO PRN (21:01)
[2019-06-06] MEDS: PRENATAL VITAMINS W/ FOLIC ACID TABLET (FP) PO SCH (10:00)
[2019-06-06] MEDS: IBUPROFEN 600 MG TABLET (FP) PO PRN ×2 (10:01→16:33)
[2019-06-06] MEDS: NICOTINE POLACRILEX 4 MG GUM BUC PRN ×2 (10:01→14:33)
[2019-06-06] MEDS: ACETAMINOPHEN 325 MG TABLET (FP) PO PRN ×2 (11:17→19:54)
[2019-06-06] MEDS: MELATONIN 5 MG TABLETS PO PRN (21:30)
[2019-06-06] MEDS: THIAMINE HCL 100 MG TABLET (FP) PO SCH (21:30)
[2019-06-06] MEDS: QUEtiapine FUMARATE 100 MG TABLET (FP) PO SCH (21:30)
[2019-06-07] MEDS: PRENATAL VITAMINS W/ FOLIC ACID TABLET (FP) PO SCH (09:50)
[2019-06-07] MEDS: IBUPROFEN 600 MG TABLET (FP) PO PRN ×2 (09:52→15:47)
[2019-06-07] MEDS: NICOTINE POLACRILEX 4 MG GUM BUC PRN ×2 (09:53→15:48)
--- NOTE | 2019-06-07 11:28 | PN ---
[facility] Progress Note Note: Patient is scheduled for discharge tomorrow. Script for 30 days supply of Seroquel 100 mg/hs will be electronically transmitted to [facility] at [address] [place], [place] [id number]
--- NOTE | 2019-06-07 11:39 | DS ---
[facility] Rehab Discharge Summary - [facility] Rehab Discharge Summary Admission Date: 05/25/19 Discharge Date: 06/07/19 - History Present History: Alcohol dependence Pertinent Past History: Denies seizures, blackouts, or overdoses. Alcohol use began at age 10/11. Drinks 1-2 bottle liquor daily. Nicotine use began at age 18. Currently smokes 1 cig /da PMHx: Denies MHHx: States was told was bipolar but denies any MH problems. Denies thoughts of harming self or others. Does not see a MH Provider. SHx: Domiciled - lives w/ brother. Unemployed. Denies legal issues. - Discharge Physical Exam Vital Signs: Vital Signs Temperature 97.1 F L 06/05/19 10:17 Pulse Rate 74 06/05/19 10:17 Respiratory Rate 18 06/07/19 03:30 Blood Pressure 127/74 06/05/19 10:17 O2 Sat by Pulse Oximetry (%) Pertinent Admission Physical Exam Findings: - Physical General Appearance: No apparent distress HEENTM: Normocephalic, PERRLA Respiratory: No Respiratory Distress Neck: Supple Cardiology: S1, S2 Abdominal: +Bowel Sounds Musculoskeletal: full range of Motion, Gait Steady) Neurological: CN2-12 intact, Motor Strength 5/5, - Treatment Discharge Condition: Outpatient referral accepted (patient will go to [facility]. Medically stable for discharge) Hospital Course: Patient attended groups, had 1:1 meetings with his counselor, was seen by the psychiatric service. He had not acute or urgent medical issues while in rehab. He did have c/o headache early in his stay that was resolved with Motrin. There were no other complaints. - Medication Discharge Medications: Ambulatory Orders Olanzapine [ZyPREXA -] 10 mg PO DAILY 05/20/19 Quetiapine Fumarate [Seroquel -] 100 mg PO HS #30 tablet 06/07/19 - Medication-Assisted Treatment (MAT) Medication-Assisted Treatment (MAT): No - Discharge Instructions Diet, activity, other medical instructions: Diet: as tolerated Activity: as tolerated Other medical instructions: Please follow up with aftercare referral. - Diagnosis (1) Alcohol use disorder Current Visit: Yes Status: Chronic - Follow-up Referral Minutes to complete discharge: 15 - AMA Did Patient Leave Against Medical Advice: No
[2019-06-07] MEDS: ACETAMINOPHEN 325 MG TABLET (FP) PO PRN ×2 (12:11→21:04)
[2019-06-07] MEDS: THIAMINE HCL 100 MG TABLET (FP) PO SCH (21:04)
[2019-06-07] MEDS: MELATONIN 5 MG TABLETS PO PRN (21:04)
[2019-06-07] MEDS: QUEtiapine FUMARATE 100 MG TABLET (FP) PO SCH (21:05)
[2019-06-08] MEDS: IBUPROFEN 600 MG TABLET (FP) PO PRN (08:41)
== END 2019-06-08 09:15 | disposition home or self-care (01) | DRG 772 ==
LOC: YASAS 11:44 → Y3W 11:45
PROVIDERS: ADMIT Allergy & Immunology; ATTEND Allergy & Immunology
PROC: HZ42ZZZ Group Counseling for Substance Abuse Treatment, Cognitive-Behavioral (ICD-10-PCS; principal; 2019-05-25)
DX: F10.20 Alcohol dependence, uncomplicated (principal); F14.20 Cocaine dependence, uncomplicated; F17.210 Nicotine dependence, cigarettes, uncomplicated; F39 Unspecified mood [affective] disorder; F60.9 Personality disorder, unspecified; F60.2 Antisocial personality disorder